=== PATIENT | female | born 1945 | race Caucasian/White ===

== ENCOUNTER 2017-08-06 06:01 | Day surgery (SDC) | payer OTHER ==
[~2017-08-06] VITALS: Ht 165.1 cm; Wt 76.2 kg
[~2017-08-06 06:01] MED LIST: ASPIRIN EC325 M1 PO; ATORVASTATIN CA40 MG PO; BYSTOLIC10 MG PO; CARVEDILOL6.25 MG; CRESTOR20 MG PO; FLUZONE 2045 MCG/011; MULTIVITAMINS PO; PNEUMOVAX25 MCG/0.5
[2017-08-06 08:00] VITALS: BP 134/74
[2017-08-06 08:05] VITALS: BP 131/75
--- NOTE | 2017-08-06 10:29 | H ---
[place] [address] HISTORY AND PHYSICAL Name: JOHAN YOUNG Room: [facility]#: [id number] Admission: 08/06/17 Attend Phys: Hubert Milian, Discharge: Date of : 47 Report #: [id number] THIS REPORT FOR: //name// CC: Hubert Lopez MD DATE OF SERVICE: 08/06/2017 DATE OF SURGERY: 08/06/2017 PRESENTING COMPLAINT: Status post bilateral silicone ruptured implants. HISTORY OF PRESENT ILLNESS: This is a 72-year-old female. She has been referred to me by Dr. Lopez. 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 She tells me that she had bilateral silicone gel implants done about 30 years ago and now she is having significant discomfort, pain and distortion of the breast and the mammogram done in 07/2016 showed that she had leakage of the implant on the right side and since then she is also feeling hardness on the right side. She now desires both of these implants to be removed and replaced with new silicone gel implants. GENERAL HEALTH: Fair. ALLERGIES: She is not allergic to any medications. CURRENT MEDICATIONS: None. PAST MEDICAL HISTORY: She had cardiac problems. PAST SURGICAL HISTORY: Gallbladder surgery in 2009, open heart surgery with coronary artery bypass grafting done in 2011, cataract surgery in 2013. SOCIAL HISTORY: She is a nonsmoker. She has two children with ages 49 and 41 years of time. She has done . Currently, she says that she has 38 C cup sized bras. PHYSICAL EXAMINATION: GENERAL: She is alert. Her mental status is clear. VITAL SIGNS: Pulse 70 per minute, blood pressure 126/77. CARDIOVASCULAR: Heart sounds normal, no murmurs heard. RESPIRATORY: Air entry equal on both sides. No crepitations. BREASTS: Shows that she has bilateral subglandular silicone gel implants. It appears that the implant on the right side is ruptured resulting in a grade 3 capsule. Implant on the left side appears to be intact and she has grade 2 capsule. There is also significant ptosis of [place] [address] HISTORY AND PHYSICAL Name: JOHAN YOUNG Room: [facility]#: [id number] Admission: 08/06/17 Attend Phys: Hubert Milian, Discharge: Date of : 47 Report #: [id number] are small and her scars are in the inframammary crease and they seem to be well healed. ASSESSMENT: Status post bilateral subglandular silicone gel implant with rupture on the right side. PLAN: Both these implants need to be surgically removed. Capsulectomy needs to be done and then followed by placing an appropriate size silicone gel implants. Details of the operative procedure including risks, benefits, alternative treatments and possible complications like infection, bleeding, hematoma, scars, possibility of rupture of the implant, asymmetry, delayed wound healing, capsular contractures were all explained to her. <ELECTRONICALLY SIGNED> By: Hubert Milian MD 08/06/17 1029 1748 1816Maginny Milian MD /nt
[2017-08-06 20:00] VITALS: BP 114/60
[2017-08-06 23:49] VITALS: BP 95/46
[2017-08-07 03:50] VITALS: BP 111/59
[2017-08-07 03:53] LABS: HEMATOCRIT 37.9 % (37.0-47.0); HEMOGLOBIN 12.5 gm/dL (12.0-15.0)
[2017-08-07 09:00] VITALS: BP 119/72
[2017-08-07] MEDS ORDERED: HYDROCODON-ACE1 EAC7 PO (10:12)
[2017-08-07 10:35] VITALS: BP 109/53
[2017-08-07] MEDS ORDERED: IBUPROFEN 600600 M1 PO (10:44)
--- NOTE | 2017-08-09 15:18 | S ---
[facility] [address] [place] [address] SURGICAL PATH RPT PROCEDURE Name: MANASA YOUNG Room: [facility].#: [id number] Admission: 08/06/17 Date of : 47 Discharge: 08/07/17 Report #: [id number] Path Case #: [id number] PATHOLOGY REPORT COLLECTION DATE: 08/06/2017 RECEIVED DATE: 08/07/2017 SUBMITTING PHYS: Dr. Hubert Milian OTHER PHYS: Dr. Roni Lopez SPECIMEN(S) RECEIVED: A.Right capsule (from breast implant)-gross only B.Left capsule (from breast implant)-gross only C.Uterus and cervix * * * * * * * * * * * * FINAL DIAGNOSIS: A. Right capsule (from breast implant): - Benign fibrofatty tissue with fat necrosis, mild chronic inflammation, fibrosis, histiocytic infiltrate and calcification. B. Left capsule (from breast implant): - Benign fibrofatty tissue with calcification. C. Uterus and cervix: 40 gram uterus (including cervix and without bilateral adnexa) with: Myometrium: - Anterior fundal leiomyoma with fibrosis and calcification and medial calcification of blood vessels. Endometrium: - Atrophic pattern, negative for hyperplasia and atypia. Cervix: - No significant pathologic changes. (OTILIA:db; 08/08/2017) PATHOLOGIST: Yao Millard M.D. REPORT ELECTRONICALLY SIGNED BY: Yao Millard M.D. DATE/TIME: 08/09/2017 15:17 * * * * * * * * * * * * GROSS PATHOLOGY: A. The specimen is received in formalin, labeled "Manasa Young and right capsule from breast implant", is a disrupted capsule 9.0 x 7.0 and a wall that measures up to 1.0 cm in thickness. The inner surface is lined by firm friable material and the opposite irregular ragged with minimally attached sahni-white fibrous and yellow adipose tissue. There is a 2.5 x 1.5 x 1.5 cm indurated area, sectioning shows a armstrong homogeneous cut surface with a central defect 0.7 cm in diameter. Molecular Spectroscopist [place] [address] SURGICAL PATH RPT PROCEDURE Name: MANASA YOUNG Room: [facility]#: [id number] Admission: 08/06/17 Date of : 47 Discharge: 08/07/17 Report #: [id number] Path Case #: [id number] B. The specimen is received in formalin, labeled "Manasa Young and left capsule from breast implant", is a disrupted capsule 10.0 x 9.0 and a wall that measures up to 0.6 cm thick. The inner surface is lined by firm friable material and the opposite irregular ragged with minimal attached soft tissue. Molecular Spectroscopist section in B1. C. The specimen is received in formalin, labeled "Maansa Young and uterus and cervix", is a uterine corpus with attached cervix weighing 40 g and 8 x 3.5 x 3.0 cm. The distorted cervix measure 4 x 3.0 cm and is lined by sahni-white ectocervix. The endocervical canal measures 4.7 cm in length and up to 0.6 cm in width and is lined by a armstrong-pink mucosa. The distorted endometrial cavity measures 2.5 x 1.2 cm and is lined by a thin hemorrhagic, up to 0.1 cm mucosa and on the anterior aspect at the fundus there is a 2.5 x 2 x 1.7 cm well-circumscribed calcified nodule. Molecular Spectroscopist sections submitted as follows: C1 anterior cervix C2 posterior cervix C3 anterior endomyometrium C4-5 posterior endomyometrium C6 nodule after decalcification (SWS; 08/07/2017) CLINICAL HISTORY: Ruptured implant, incomplete uterine prolapse INITIAL CPT CODE(S): A; 13162 B; 72828 C; 59607 Professional services performed by [facility] at [facility], [address] [place] [id number]. Technical services performed by [facility] at [address] [place] [address], [address], [place] [address]. [facility] [place] [address] PHONE: [phone] DIRECTOR: Willi Freitas M.D. * * * END OF REPORT * * *
--- NOTE | 2017-08-27 12:18 | OP ---
[address] [address] OPERATIVE REPORT Name: HANNAHJOHAN Room: [facility].#: [id number] Admission: 08/06/17 Attend Phys: Hubert Milian, Discharge: 08/07/17 Date of : 47 Report #: [id number] THIS REPORT FOR: //name// CC: Hubert Milian Roni Weaver DATE OF SERVICE: 08/06/2017 PREOPERATIVE DIAGNOSIS: Status post bilateral subglandular silicone gel implants rupture on the right side. POSTOPERATIVE DIAGNOSIS: Status post bilateral subglandular silicone gel implants with bilateral ruptured implants and capsular contracture. SURGEON: Hubert Milian M.D. ANESTHESIA: General. INDICATIONS: This 72-year-old female has been referred to me by Dr. 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 She presented to me with status post bilateral subglandular silicone gel implant and recent mammogram showed that it was ruptured on the right side. The right implant felt harder and she had severe ptosis on both sides. She desired to have both these implants removed and replaced with new silicone gel implants. Details of the operative procedure including risks, benefits, alternative treatments and possible complications like infection, bleeding, hematoma, scars, recurrence of the capsular contracture, asymmetry were all explained to her. DESCRIPTION OF PROCEDURE: While the patient was in the holding area and in standing position, the skin markings were carried out. Midline of the anterior chest inframammary crease was both marked on the skin surface. Surgical details were again explained to the patient. She was then taken to the operating room and was placed in the supine position. She was given endotracheal general anesthesia. Two grams of Ancef was given intravenously within 1 hour prior to the commencement of surgery. Anterior lateral chest and upper abdomen were cleaned, prepped with Betadine solution and draped with sterile sheets. The right side was addressed first. Incision was given 5.0 cm in length to the inframammary crease. Skin edges were retracted. Her old silicone gel implant was identified and this was incised. It was found that the silicone gel implant inside was completely ruptured, with slight extravasation in the extracapsular space. The implant was removed. The entire capsule, which was also heavily calcified, was very carefully excised completely. The [place] [address] OPERATIVE REPORT Name: JOHAN YOUNG Room: [facility]#: [id number] Admission: 08/06/17 Attend Phys: Hubert Milian, Discharge: 08/07/17 Date of : 47 Report #: [id number] with bacitracin solution. Tumescent solution containing lidocaine, lactated Ringer's and epinephrine was infiltrated for hemostasis as well as postop comfort. Hemostasis was accomplished with electrocautery. A #16 size Rajan drain was placed. Same procedure was repeated on the left side. The left implant was also completely ruptured, with extensive calcification in the capsule. So, both implants and the entire capsules were excised and removed. Pocket was likewise irrigated with bacitracin solution. A #15 Rajan drain was placed. After trying different size implants, it was decided to place 385 mL silicone gel Inspira implant on the right side and left side. She was then made to sit up and both sides were compared visually for size, shape and symmetry. She was again placed in supine position. The main incisions were closed with 3-0 PDS and subcutaneous layer was closed with 3-0 Monocryl. Skin was closed with 3-0 Monocryl as a subcuticular suture, reinforced with Steri-Strips. Dressings were applied. The next step of this procedure was by Dr. Lopez and he will describe it in detail in his notes. ESTIMATED BLOOD LOSS: About 10 mL. <ELECTRONICALLY SIGNED> By: Hubert Milian MD 08/27/17 1218 1036 1219Hubert Milian MD /nt
== END 2017-08-07 13:15 | disposition home or self-care (01) ==
LOC: M.SUR 06:01 → M.ORTHSURG 11:42 → M.SUR 13:39
PROVIDERS: Specialist
DX: T85.49XA Other mechanical complication of breast prosthesis and implant, initial encounter (principal); D24.2 Benign neoplasm of left breast; D24.1 Benign neoplasm of right breast; Z98.890 Other specified postprocedural states; Z95.1 Presence of aortocoronary bypass graft; Z95.0 Presence of cardiac pacemaker; I10 Essential (primary) hypertension; E78.5 Hyperlipidemia, unspecified

== ENCOUNTER → 2018-10-23 | Outpatient (CLI) | payer OTHER ==
[~2018-10-23] MED LIST changes: +HYDROCODON-ACE1 EAC7 PO; +IBUPROFEN 600600 M1 PO
== END ==
LOC: M.LAB 10:16 → M.MRI 11:30
DX: M47.816 Spondylosis without myelopathy or radiculopathy, lumbar region (principal); M51.26 Other intervertebral disc displacement, lumbar region; M48.07 Spinal stenosis, lumbosacral region; M70.61 Trochanteric bursitis, right hip

== ENCOUNTER → 2019-01-07 | Outpatient (CLI) | payer OTHER ==
--- NOTE | 2019-01-09 17:08 | CARDNUC ---
[place] [address] CARDIAC NUCLEAR IMAGING REPORT Name: JOHAN YOUNG Room: [facility]#: [id number] Admission: 01/07/19 Attend Phys: Narayan Holt, Discharge: Date of : 47 Date of Service: 01/09/19 1708 Report #: [id number] THIS REPORT FOR: //name// APPROVED REPORT Study performed: 01/07/2019 10:03:36 Exam: Nuclear Stress Test Patient Location: Out-Patient BMI: 0 Stress Test Details Stress Test: Pharmacologic stress testing performed using 0.4 mg of regadenoson per 5 mL given IV over 10 seconds. Reason for pharmacologic stress test: physical limitation. HR Resting HR: 60 bpm Max Heart Rate (APMHR): 148 bpm Max HR Achieved: 89 bpm Target HR (85% APMHR): 125 bpm % of APMHR: 60 Recovery HR: 76 bpm BP Resting BP: 149/58 mmHg Max BP: 140/83 mmHg ECG Resting ECG: Sinus Rhythm Stress ECG: Sinus Rhythm ST Change: None Arrhythmia: None Recovery ECG: Sinus Rhythm Recovery ST Change: None Recovery Arrhythmia: None Clinical Reason for Termination: Completed protocol Exercise duration: 0 min sec Exercise capacity: 1 METs The patient had no significant symptoms with Lexiscan infusion. Nurse Comments pt has bad leg and was unable [place] [address] CARDIAC NUCLEAR IMAGING REPORT Name: JOHAN YOUNG Room: [facility]#: [id number] Admission: 01/07/19 Attend Phys: Narayan Holt, Discharge: Date of : 47 Date of Service: 01/09/19 1708 Report #: [id number] Stress ECG Conclusion The baseline 12-lead EKG show sinus rhythm without significant ST or T wave abnormality. EKGs obtained during and post Lexiscan infusion show sinus rhythm no significant ST segment changes when compared to baseline. There were no stress-induced arrhythmias. NM EXAM: Myocardial Perfusion REST/STRESS Imaging Protocol: Rest Tc-99m/Stress Tc-99m 1 day Resting Data Rest SPECT myocardial perfusion imaging was performed in supine position 30 minutes following the intravenous injection of 10.4 mCi of Tc-99m Sestamibi. Time of rest injection: 0845 Date: 01/07/2019 The images were gated to evaluate regional wall motion and calculate left ventricular ejection fraction. Administration Route: IV Administration Site: Right Hand Pharmacologic Stress Pharmacologic stress test was performed by injecting Regadenoson 0.4 mg IV push followed by the intravenous injection of 31.1 mCi of Tc-99m Sestamibi. Time of stress injection: 1005 Date: 01/07/2019 Administration Route: IV Administration Site: Right Hand Gated Stress SPECT was performed 40 minutes after stress injection. The images were gated to evaluate regional wall motion and calculate left ventricular ejection fraction. Prone imaging was performed. Study Quality Study: Good Artifact: Mild apical thinning Study Data At rest, the left ventricular ejection fraction was 71%.. Post stress, the left ventricular ejection was 75%.. TID = 0.86. Perfusion There is a focal defect of the apex on resting images that partially resolves post stress images. Wall motion in this region appears to be normal suggesting apical thinning artifact. [place] [address] CARDIAC NUCLEAR IMAGING REPORT Name: JOHAN YOUNG Room: [facility]#: [id number] Admission: 01/07/19 Attend Phys: Narayan Holt, Discharge: Date of : 47 Date of Service: 01/09/19 1708 Report #: [id number] fixed or reversible defects were identified. Wall Motion Normal left ventricular wall motion. Nuclear Conclusion ECG Findings: negative for ischemia Clinical Findings: negative for ischemia Nuclear Findings: negative for ischemia Exercise Capacity: not assessed Left Ventricular Function: normal Risk Study: low Myocardial perfusion images show no defect to suggest ischemia. There is a focal apical defect that is more pronounced on resting and stress images consistent with apical thinning artifact. Global LV systolic function is normal with normal wall motion. This is a low risk study. <Conclusion> The baseline 12-lead EKG show sinus rhythm without significant ST or T wave abnormality. EKGs obtained during and post Lexiscan infusion show sinus rhythm no significant ST segment changes when compared to baseline. There were no stress-induced arrhythmias. <ELECTRONICALLY SIGNED> By: Narayan Holt MD, [facility] 01/09/19 1708 170 07 Narayan Holt MD, FACC /INF
== END ==
LOC: M.NUC 12-26 12:04 → M.CRD 01-05 15:00 → M.NUC 01-05 16:00
DX: Z48.812 Encounter for surgical aftercare following surgery on the circulatory system (principal); Z95.1 Presence of aortocoronary bypass graft

== ENCOUNTER 2019-11-09 11:13 | Emergency (ER) | payer OTHER ==
[~2019-11-09] VITALS: Ht 165.1 cm; Wt 65.8 kg
[~2019-11-09 11:13] MED LIST changes: -ATORVASTATIN CA40 MG PO; +CRESTOR40 MG PO
[2019-11-09] MEDS ORDERED: ATENOLOL-CHLOR1 EACH PO (11:26)
[2019-11-09 12:23] LABS: INFLUENZA A ANTIGEN Negative (Negative); INFLUENZA B ANTIGEN Negative (Negative)
[2019-11-09 14:30] LABS: URINE BILIRUBIN NEGATIVE (Negative); URINE BLOOD 2+ (Negative); URINE CLARITY CLEAR; URINE COLOR YELLOW; URINE GLUCOSE-RANDOM NEGATIVE (Negative); URINE KETONES NEGATIVE (Negative); URINE LEUKOCYTES-REFLEX 1+ (Negative); URINE NITRITE-REFLEX NEGATIVE (Negative); URINE PROTEIN 2+ (Negative); URINE UROBILINOGEN 0.2 E.U./dl (0.2-1.0)
[2019-11-09 14:35] LABS: BACTERIA-REFLEX >30 Many /HPF (None Seen); COARSE GRANULAR CASTS 4-10 Moderate /LPF (None Seen); CRYSTALS None Seen /LPF (None Seen); HYALINE CASTS >10 Many /LPF (None Seen); MUCUS 0-3 Light strn/LPF (None Seen); SQUAMOUS 0-3 Few /LPF (0-3); URINE WBC-REFLEX >25 Many /HPF (0-5)
[2019-11-09] MEDS ORDERED: CEFDINIR300 MG PO (14:40)
[2019-11-09] MEDS ORDERED: PYRIDIUM100 M1 PO (14:40)
[2019-11-09 15:10] VITALS: BP 103/67
== END 2019-11-09 15:12 | disposition home or self-care (01) ==
LOC: M.ERS 11:13
PROVIDERS: Nurse Practitioner Family
DX: N39.0 Urinary tract infection, site not specified (principal); I10 Essential (primary) hypertension; E78.5 Hyperlipidemia, unspecified; Z90.89 Acquired absence of other organs

== ENCOUNTER → 2021-01-02 | Outpatient (CLI) | payer OTHER ==
[~2021-01-02] MED LIST changes: +ATENOLOL-CHLOR1 EACH PO; +CEFDINIR300 MG PO; +PYRIDIUM100 M1 PO
[2021-01-02 09:56] LABS: ALBUMIN 3.8 g/dL (3.4-5.0); ALKALINE PHOSPHATASE 63 U/L (46-116); ANION GAP 4 mmol/L (7-16); BUN 22 mg/dL (7-18); CALCIUM 8.9 mg/dL (8.5-10.1); CHLORIDE 105 mmol/L (98-107); CHOLESTEROL 171 mg/dL (<200); CO2 33 mmol/L (21-32); CREATININE 0.9 mg/dL (0.6-1.3); GLUCOSE 87 mg/dL (70-99); HDL CHOLESTEROL 97 mg/dL (>40); LDL CHOLESTEROL 63 mg/dL (<100); POTASSIUM 3.2 mmol/L (3.5-5.1); SERUM ASSESSMENT Clear; SGOT 29 U/L (15-37); SGPT 51 U/L (30-65); SODIUM 142 mmol/L (136-145); TC:HDL 1.8 Ratio (Not establshd); TOTAL BILIRUBIN 0.7 mg/dL (<0.1-1.0); TOTAL PROTEIN 7.4 g/dL (6.4-8.2); TRIGLYCERIDE 55 mg/dL (<150); VLDL 11 mg/dL (<40)
== END ==
LOC: M.LAB 09:25
PROVIDERS: ATTEND Internal Medicine Interventional Cardiology
DX: I25.10 Atherosclerotic heart disease of native coronary artery without angina pectoris (principal)

== ENCOUNTER → 2021-03-08 | Outpatient (CLI) | payer OTHER ==
[2021-03-08 09:08] LABS: CALCIUM 9.1 mg/dL (8.5-10.1); CREATININE 0.7 mg/dL (0.6-1.3); POTASSIUM 3.7 mmol/L (3.5-5.1)
== END ==
LOC: M.LAB 08:39
PROVIDERS: ATTEND Internal Medicine Interventional Cardiology
DX: E78.2 Mixed hyperlipidemia (principal)